=== PATIENT | male | born 1970 | race Caucasian/White ===

== ENCOUNTER 2019-07-02 12:00 | Inpatient (IN) | payer OTHER ==
[~2019-07-02] VITALS: Ht 190.5 cm; Wt 112.9 kg
[2019-07-02 12:05] VITALS: BP 127/82
[2019-07-02] MEDS ORDERED: ACETAMINOPHEN/CODEINE 300-30 MG TABLET ONE (13:50)
[2019-07-02] MEDS ORDERED: ACETAMINOPHEN 325 MG TABLET ONE (13:56)
[2019-07-02] MEDS ORDERED: CloNIDine HCL 0.1 MG TABLET PO PRN (16:15)
[2019-07-02 16:16] VITALS: BP 138/89
[2019-07-02] MEDS: OxyCODONE HCL 5 MG IR TABLET PO PRN ×2 (16:46→21:08)
[2019-07-02 17:08] LABS: INR 2.4 (0.9-1.1)
[2019-07-02] MEDS ORDERED: *CLINICAL-WARFARIN SODIUM DOSING CLINICAL ONE (19:30)
[2019-07-02] MEDS: ALBUTEROL SULFATE 2.5 MG/0.5 ML NEB SOLUTION NEB SCH (20:00)
[2019-07-02] MEDS: IPRATROPIUM BROMIDE 0.5 MG/2.5 ML NEB SOLUTION NEB SCH (20:00)
[2019-07-02] MEDS: DOCUSATE SODIUM 100 MG CAPSULE PO SCH (20:55)
[2019-07-02] MEDS: WARFARIN SODIUM 7.5 MG TABLET PO SCH (20:56)
[2019-07-02] MEDS: PROPRANOLOL HCL 10 MG TABLET PO SCH (20:56)
[2019-07-02] MEDS: SENNA 187 MG TABLET PO SCH (20:56)
[2019-07-02] MEDS: GABAPENTIN 100 MG CAPSULE PO SCH (20:56)
[2019-07-02 21:01] VITALS: BP 119/69
[2019-07-02] MEDS ORDERED: DOCUSATE SODIUM 283 MG/5 ML MINI-ENEMA PR PRN (22:30)
[2019-07-03 00:42] VITALS: BP 123/77
[2019-07-03 06:45] LABS: BASOPHILS % (AUTO) 0.8 % (0.0-2.0); HEMATOCRIT 36.7 % (41-53); INR 2.2 (0.9-1.1); LYMPHOCYTES # (AUTO) 2.3 K/uL (1.0-4.8); LYMPHOCYTES % (AUTO) 35.2 % (22.0-44.0); MEAN CORPUSCULAR HEMOGLOBIN 27.7 pg (26.0-34.0); MEAN CORPUSCULAR HGB CONC 32.6 G/dL (31.0-37.0); MEAN CORPUSCULAR VOLUME 85 fL (80-100); MONOCYTES # (AUTO) 0.6 K/uL (0.1-1.0); MONOCYTES % (AUTO) 8.7 % (2.0-9.0); NEUTROPHILS # (AUTO) 3.3 K/uL (1.8-7.7); NEUTROPHILS % (AUTO) 50.3 % (40.0-70.0); PLATELET COUNT (AUTO) 343 K/uL (150-450); PROTHROMBIN TIME 22.2 SEC (9.4-11.6); RED BLOOD CELL COUNT(AUTO) 4.32 MIL/uL (4.50-5.90); RED CELL DISTRIBUTION WIDTH 15.6 % (11.5-14.5)
[2019-07-03 07:13] LABS: ALANINE AMINOTRANSFERASE 22 U/L (12-78); ALBUMIN 2.9 g/dL (3.4-5.0); ALKALINE PHOSPHATASE 109 U/L (46-116); ANION GAP 10 mmol/L (8-16); ASPARTATE AMINOTRANSFERASE 10 U/L (15-37); BILIRUBIN,TOTAL 0.1 mg/dL (0.1-1.0); CALCIUM, TOTAL 9.1 mg/dL (8.8-10.5); CARBON DIOXIDE 26 mmol/L (22-29); CHLORIDE 102 mmol/L (98-107); CREATININE 1.13 mg/dL (0.60-1.30); GLOMERULAR FILTR. RATE CALC > 60 mL/min (>60); GLUCOSE,RANDOM 93 mg/dL (70-110); POTASSIUM 3.7 mmol/L (3.5-5.1); SODIUM SERUM 138 mmol/L (136-145); TOTAL PROTEIN, SERUM 7.7 g/dL (6.4-8.2); UREA NITROGEN, BLOOD 17 mg/dL (7-18)
[2019-07-03 07:24] VITALS: BP 129/78
[2019-07-03] MEDS: IPRATROPIUM BROMIDE 0.5 MG/2.5 ML NEB SOLUTION NEB SCH (08:00)
[2019-07-03] MEDS: ALBUTEROL SULFATE 2.5 MG/0.5 ML NEB SOLUTION NEB SCH (08:00)
[2019-07-03] MEDS: ACETYLCYSTEINE 20% 200 MG/ML 4 ML NEB SOLUTION NEB SCH ×2 (08:00)
[2019-07-03] MEDS: FLUCONAZOLE 100 MG TABLET PO SCH (08:34)
[2019-07-03] MEDS: GABAPENTIN 100 MG CAPSULE PO SCH ×3 (08:34→21:17)
[2019-07-03] MEDS: PROPRANOLOL HCL 10 MG TABLET PO SCH ×3 (08:34→21:16)
[2019-07-03] MEDS: DOCUSATE SODIUM 100 MG CAPSULE PO SCH ×2 (08:35→21:17)
[2019-07-03] MEDS: SENNA 187 MG TABLET PO SCH ×2 (08:36→21:17)
[2019-07-03] MEDS: OxyCODONE HCL 5 MG IR TABLET PO PRN ×4 (08:42→23:37)
[2019-07-03] MEDS: MULTIVITAMINS WITH MINERALS, THERAPEUTIC TABLET PO SCH (08:42)
[2019-07-03] MEDS ORDERED: LAMIVUDINE PO SCH (09:00)
[2019-07-03] MEDS ORDERED: ABACAVIR PO SCH (09:00)
[2019-07-03] MEDS ORDERED: LACTULOSE 20 GM/30 ML SOLUTION UDCUP PO SCH ×2 (09:00)
[2019-07-03] MEDS ORDERED: DOLUTEGRAVIR PO SCH (09:00)
[2019-07-03] MEDS: TRIUMEQ TABLET PO SCH (10:02)
[2019-07-03] MEDS ORDERED: ACETYLCYSTEINE 20% 200 MG/ML 4 ML NEB SOLUTION NEB PRN (12:15)
[2019-07-03] MEDS ORDERED: IPRATROPIUM BROMIDE 0.5 MG/2.5 ML NEB SOLUTION NEB PRN (12:15)
[2019-07-03] MEDS ORDERED: ALBUTEROL SULFATE 2.5 MG/0.5 ML NEB SOLUTION NEB PRN (12:15)
[2019-07-03] MEDS ORDERED: LACTULOSE 20 GM/30 ML SOLUTION UDCUP PO PRN (13:00)
[2019-07-03 15:48] VITALS: BP 123/70
[2019-07-03] MEDS: ACETAMINOPHEN 325 MG TABLET PO PRN (15:55)
[2019-07-03] MEDS: WARFARIN SODIUM 7.5 MG TABLET PO SCH (16:37)
[2019-07-03 21:00] VITALS: BP 145/92
[2019-07-03] MEDS: COLD CREAM, SKIN EMOLLIENT 340 GM JAR TP SCH (21:00)
[2019-07-04 00:35] VITALS: BP 105/72
[2019-07-04 07:57] VITALS: BP 124/84
[2019-07-04] MEDS: MULTIVITAMINS WITH MINERALS, THERAPEUTIC TABLET PO SCH (08:10)
[2019-07-04] MEDS: TRIUMEQ TABLET PO SCH (08:10)
[2019-07-04] MEDS: GABAPENTIN 100 MG CAPSULE PO SCH ×3 (08:11→22:07)
[2019-07-04] MEDS: FLUCONAZOLE 100 MG TABLET PO SCH (08:11)
[2019-07-04] MEDS: PROPRANOLOL HCL 10 MG TABLET PO SCH ×3 (08:11→22:08)
[2019-07-04] MEDS: OxyCODONE HCL 5 MG IR TABLET PO PRN ×4 (08:11→22:36)
[2019-07-04] MEDS: DOCUSATE SODIUM 100 MG CAPSULE PO SCH ×3 (08:12→22:07)
[2019-07-04] MEDS: SENNA 187 MG TABLET PO SCH ×3 (08:12→21:00)
[2019-07-04 08:13] LABS: INR 2.7 (0.9-1.1); PROTHROMBIN TIME 26.8 SEC (9.4-11.6)
[2019-07-04 15:00] VITALS: BP 126/82
[2019-07-04] MEDS: WARFARIN SODIUM 7.5 MG TABLET PO SCH (16:44)
[2019-07-04] MEDS: COLD CREAM, SKIN EMOLLIENT 340 GM JAR TP SCH (22:06)
[2019-07-05 00:39] VITALS: BP 118/70
[2019-07-05 06:54] LABS: INR 2.2 (0.9-1.1); PROTHROMBIN TIME 22.5 SEC (9.4-11.6)
[2019-07-05 07:37] VITALS: BP 135/81
[2019-07-05] MEDS: OxyCODONE HCL 5 MG IR TABLET PO PRN ×4 (07:37→23:39)
[2019-07-05] MEDS: GABAPENTIN 100 MG CAPSULE PO SCH ×3 (08:27→20:31)
[2019-07-05] MEDS: DOCUSATE SODIUM 100 MG CAPSULE PO SCH ×2 (08:27→20:31)
[2019-07-05] MEDS: FLUCONAZOLE 100 MG TABLET PO SCH (08:27)
[2019-07-05] MEDS: TRIUMEQ TABLET PO SCH (08:28)
[2019-07-05] MEDS: MULTIVITAMINS WITH MINERALS, THERAPEUTIC TABLET PO SCH (08:29)
[2019-07-05] MEDS: SENNA 187 MG TABLET PO SCH ×2 (08:29→20:37)
[2019-07-05] MEDS ORDERED: TALTZ SQ SCH (09:00)
[2019-07-05] MEDS: PROPRANOLOL HCL 10 MG TABLET PO SCH ×3 (13:07→20:31)
[2019-07-05] MEDS ORDERED: WARFARIN SODIUM 2 MG TABLET PO SCH (17:00)
[2019-07-05 17:04] VITALS: BP 135/96
[2019-07-05] MEDS: COLD CREAM, SKIN EMOLLIENT 340 GM JAR TP SCH (20:33)
[2019-07-05 23:39] VITALS: BP 140/90
[2019-07-06] MEDS: OxyCODONE HCL 5 MG IR TABLET PO PRN ×3 (06:40→21:13)
[2019-07-06 07:47] VITALS: BP 133/83
[2019-07-06 07:55] LABS: INR 2.7 (0.9-1.1); PROTHROMBIN TIME 27.2 SEC (9.4-11.6)
[2019-07-06] MEDS: SENNA 187 MG TABLET PO SCH ×2 (09:00→20:37)
[2019-07-06] MEDS: MULTIVITAMINS WITH MINERALS, THERAPEUTIC TABLET PO SCH (09:11)
[2019-07-06] MEDS: FLUCONAZOLE 100 MG TABLET PO SCH (09:11)
[2019-07-06] MEDS: TRIUMEQ TABLET PO SCH (09:12)
[2019-07-06] MEDS: GABAPENTIN 100 MG CAPSULE PO SCH ×3 (09:12→20:36)
[2019-07-06] MEDS: PROPRANOLOL HCL 10 MG TABLET PO SCH ×3 (09:12→20:36)
[2019-07-06] MEDS: DOCUSATE SODIUM 100 MG CAPSULE PO SCH ×2 (09:12→20:36)
[2019-07-06 15:22] VITALS: BP 120/77
[2019-07-06] MEDS ORDERED: WARFARIN SODIUM 7.5 MG TABLET PO SCH (17:00)
[2019-07-06 20:32] VITALS: BP 121/71
[2019-07-06] MEDS: COLD CREAM, SKIN EMOLLIENT 340 GM JAR TP SCH (21:23)
[2019-07-07 01:31] VITALS: BP 116/72
[2019-07-07] MEDS: OxyCODONE HCL 5 MG IR TABLET PO PRN ×2 (01:31→19:38)
[2019-07-07 07:30] VITALS: BP 138/79
[2019-07-07] MEDS: TRIUMEQ TABLET PO SCH (07:54)
[2019-07-07] MEDS: GABAPENTIN 100 MG CAPSULE PO SCH (07:54)
[2019-07-07] MEDS: FLUCONAZOLE 100 MG TABLET PO SCH (07:54)
[2019-07-07] MEDS: PROPRANOLOL HCL 10 MG TABLET PO SCH (07:55)
[2019-07-07] MEDS: DOCUSATE SODIUM 100 MG CAPSULE PO SCH ×2 (07:55→19:57)
[2019-07-07] MEDS: MULTIVITAMINS WITH MINERALS, THERAPEUTIC TABLET PO SCH (07:55)
[2019-07-07] MEDS: SENNA 187 MG TABLET PO SCH ×2 (07:55→19:57)
[2019-07-07 08:11] LABS: INR 3.2 (0.9-1.1); PROTHROMBIN TIME 32.2 SEC (9.4-11.6)
[2019-07-07 15:21] VITALS: BP 134/84
[2019-07-07] MEDS ORDERED: OxyCODONE HCL 5 MG IR TABLET PO PRN (16:15)
[2019-07-07] MEDS: WARFARIN SODIUM 3 MG TABLET PO SCH (18:54)
[2019-07-07] MEDS: COLD CREAM, SKIN EMOLLIENT 340 GM JAR TP SCH (19:59)
[2019-07-08] VITALS: BP 122/69
[2019-07-08 07:30] VITALS: BP 130/18
[2019-07-08 07:56] LABS: INR 2.8 (0.9-1.1); PROTHROMBIN TIME 28.3 SEC (9.4-11.6)
[2019-07-08 08:05] VITALS: BP 130/87
[2019-07-08] MEDS: ACETAMINOPHEN 325 MG TABLET PO PRN (08:05)
[2019-07-08] MEDS: TRIUMEQ TABLET PO SCH (08:14)
[2019-07-08] MEDS: MULTIVITAMINS WITH MINERALS, THERAPEUTIC TABLET PO SCH (08:14)
[2019-07-08] MEDS: FLUCONAZOLE 100 MG TABLET PO SCH (08:14)
[2019-07-08] MEDS: DOCUSATE SODIUM 100 MG CAPSULE PO SCH ×2 (08:14→20:52)
[2019-07-08] MEDS ORDERED: SENNA 187 MG TABLET PO PRN (10:30)
[2019-07-08] MEDS ORDERED: ALBO180CR TP (15:41)
[2019-07-08] MEDS ORDERED: ABAC1TAB15 PO (15:41)
[2019-07-08] MEDS ORDERED: WARF3TAB29 PO (15:41)
[2019-07-08] MEDS ORDERED: DSS100 PO (15:41)
[2019-07-08] MEDS ORDERED: OXYC5 PO (15:41)
[2019-07-08] MEDS ORDERED: MULT-248 PO (15:41)
[2019-07-08] MEDS ORDERED: IXEK80SY3 SQ (15:41)
[2019-07-08 15:57] VITALS: BP 125/79
[2019-07-08] MEDS: WARFARIN SODIUM 3 MG TABLET PO SCH (17:07)
[2019-07-08] MEDS: OxyCODONE HCL 5 MG IR TABLET PO PRN (18:31)
[2019-07-08] MEDS: COLD CREAM, SKIN EMOLLIENT 340 GM JAR TP SCH (20:53)
[2019-07-09 00:30] VITALS: BP 147/96
[2019-07-09 06:36] LABS: INR 2.6 (0.9-1.1); PROTHROMBIN TIME 26.6 SEC (9.4-11.6)
[2019-07-09 08:30] VITALS: BP 145/88
[2019-07-09] MEDS: MULTIVITAMINS WITH MINERALS, THERAPEUTIC TABLET PO SCH (08:57)
[2019-07-09] MEDS: TRIUMEQ TABLET PO SCH (08:57)
[2019-07-09] MEDS: DOCUSATE SODIUM 100 MG CAPSULE PO SCH (08:57)
[2019-07-09] MEDS ORDERED: WARFARIN SODIUM 5 MG TABLET PO SCH (17:00)
[2019-07-09] MEDS ORDERED: WARFARIN SODIUM 2 MG TABLET PO SCH (17:00)
[2019-07-29] MEDS ORDERED: IXEKIZUMAB SQ SCH (09:00)
[2019-07-29] MEDS ORDERED: [UNRECOGNIZED DRUG - OTHER] SQ SCH (09:00)
== END 2019-07-09 13:35 | disposition home or self-care (01) | DRG 83 ==
LOC: 2WR 12:00
PROVIDERS: ATTEND Physical Medicine & Rehabilitation
DX: S06.5X9A Traumatic subdural hemorrhage with loss of consciousness of unspecified duration, initial encounter (principal); B49 Unspecified mycosis; D68.51 Activated protein C resistance; G81.91 Hemiplegia, unspecified affecting right dominant side; Z21 Asymptomatic human immunodeficiency virus [HIV] infection status; G47.33 Obstructive sleep apnea (adult) (pediatric); H53.2 Diplopia; I10 Essential (primary) hypertension; K59.00 Constipation, unspecified; L40.50 Arthropathic psoriasis, unspecified; N35.919 Unspecified urethral stricture, male, unspecified site; R29.6 Repeated falls; N13.5 Crossing vessel and stricture of ureter without hydronephrosis; S06.9X0A Unspecified intracranial injury without loss of consciousness, initial encounter; M10.9 Gout, unspecified; E66.9 Obesity, unspecified; W05.1XXA Fall from non-moving nonmotorized scooter, initial encounter; Y92.89 Other specified places as the place of occurrence of the external cause; Y99.8 Other external cause status; Y93.89 Activity, other specified; Z79.01 Long term (current) use of anticoagulants; Z79.899 Other long term (current) drug therapy; Z87.11 Personal history of peptic ulcer disease; Z87.891 Personal history of nicotine dependence; Z91.81 History of falling; Z86.711 Personal history of pulmonary embolism; Z86.718 Personal history of other venous thrombosis and embolism; Z68.31 Body mass index [BMI] 31.0-31.9, adult
CPT/HCPCS: 70450; 87081; 92507; 92523; 97110; 97112; 97116; 97162; 97167; 97530; 97535; 99366